=== PATIENT | female | born 1955 | race Caucasian/White ===

== ENCOUNTER 2017-10-18 11:27 | Emergency (ER) | payer MEDICARE, OTHER ==
[~2017-10-18] VITALS: Ht 167.6 cm; Wt 61.2 kg
[~2017-10-18 11:27] MED LIST: ALPR.5 PO; ARIP10 PO; ATOR40TA PO; BRINTELLIX20 MG PO; CYAN1000I IM; ERGO50000 PO; ESOM20 PO; LEVSOD100 PO; METO50ER; MODA200 PO; NUVIGIL250 MG PO; PRED5 PO; THIA100I ID
[2017-10-18 12:21] LABS: BASOPHILS ABSOLUTE AUTO 0.02 K/mm3 (0.00-0.23); BASOPHILS PERCENT AUTO 0 % (0-2); EOSINOPHILS PERCENT AUTO 0 % (0-6); Hematocrit 43.4 % (33.0-51.0); Hemoglobin 14.6 g/dL (11.5-16.0); IMMATURE GRAN ABSOLUTE AUTO 0.03 K/mm3 (0.00-0.10); IMMATURE GRAN PERCENT AUTO 0 % (0-1); LYMPHOCYTES ABSOLUTE AUTO 1.93 K/mm3 (0.84-5.20); LYMPHOCYTES PERCENT AUTO 19 % (21-46); MONOCYTES ABSOLUTE AUTO 0.78 K/mm3 (0.16-1.47); MONOCYTES PERCENT AUTO 8 % (4-13); Mean Corpuscular HGB 32.1 pg (26.0-34.0); Mean Corpuscular HGB Conc 33.6 g/dL (31.5-36.5); Mean Corpuscular Volume 95 fL (80-100); Mean Platelet Volume 9.4 fL (9.1-12.4); NEUTROPHILS ABSOLUTE AUTO 7.18 K/mm3 (1.96-9.15); NEUTROPHILS PERCENT AUTO 72 % (41-73); Platelet Count 342 K/mm3 (150-400); RDW Coefficient Variation 12.5 % (11.7-14.2); RDW Standard Deviation 43.5 fL (35.1-46.3); Red Blood Cell Count 4.55 M/mm3 (3.80-5.20); White Blood Cell Count 9.94 K/mm3 (4.00-11.30)
[2017-10-18 12:40] LABS: Alanine Aminotransfer (ALT/SGP 9 U/L (12-78); Albumin, Blood 3.8 g/dL (3.4-5.0); Albumin/Globulin Ratio 1.1 (0.8-1.8); Alk Phos 62 U/L (50-136); Anion Gap 9 mmol/L (6-16); Aspartate Aminotrans (AST/SGOT 11 U/L (12-37); Bilirubin, Total 0.9 mg/dL (0.1-1.0); Blood Urea Nitrogen 7 mg/dL (8-24); Bun/Creatinine Ratio 9.4 (12.0-20.0); CO2, Blood 26 mmol/L (21-32); Calcium, Blood 9.1 mg/dL (8.5-10.1); Chloride, Blood 103 mmol/L (98-108); Creatinine, Blood 0.75 mg/dL (0.40-1.00); Globulin, Blood 3.6 g/dL (2.2-4.0); Glomerular Filtration Rate >60 (60-); Glucose, Blood 105 mg/dL (70-99); Potassium, Blood 3.3 mmol/L (3.5-5.5); Sodium, Blood 138 mmol/L (136-145); Total Protein, Blood 7.4 g/dL (6.4-8.2); Troponin I <0.015 ng/mL (0.000-0.040)
[2017-10-18] MEDS ORDERED: Citalopram HBr40 MG PO (16:13)
[2017-10-18] MEDS ORDERED: Desyrel50 MG PO (16:13)
[2017-10-18] MEDS ORDERED: Ativan1 MG PO (16:13)
== END 2017-10-18 17:08 | disposition home or self-care (01) ==
LOC: ER 11:27
PROVIDERS: Emergency Medicine
DX: F41.9 Anxiety disorder, unspecified (principal); F32.9 Major depressive disorder, single episode, unspecified; F43.9 Reaction to severe stress, unspecified; R06.4 Hyperventilation; E03.9 Hypothyroidism, unspecified; Z90.710 Acquired absence of both cervix and uterus; Z95.0 Presence of cardiac pacemaker
CPT/HCPCS: 36415; 71046; 80053; 84484; 85025; 93005; 93010; 96374; 99283; J2060

== ENCOUNTER 2019-02-06 06:53 | Day surgery (SDC) | payer OTHER ==
[~2019-02-06] VITALS: Ht 167.6 cm; Wt 62.0 kg
[~2019-02-06 06:53] MED LIST changes: +Ativan1 MG PO; +Citalopram HBr40 MG PO; +Desyrel50 MG PO; -METO50ER; +METO50ER PO; +Nitroglycerin1 EAC3 TD; +OLAN5 PO; +TIROSINT88 MCG PO; +TRAZ50 PO
[2019-02-06] MEDS ORDERED: LO-DOSE ASPIRIN81 MG PO (07:29)
--- NOTE | 2019-02-06 10:00 | NUR ---
DR BRANDT TO BEDSIDE, DISCUSSING PLAN OF CARE. NADN. VSS. R RADIAL REMAINS STABLE. SISTER, SAMSON AT BEDSIDE.
--- NOTE | 2019-02-06 10:07 | NUR ---
SUMMARY: PT HAS HAD UNCOMPLICATED POST PROCEDURE COURSE TO THIS POINT. EATING, DRINKING WITHOUT DIFFICULTY. AWAKE, ALERT, CONVERSING WITH FAMILY AT BEDSIDE. TR BAND IN PLACE TO RIGHT WRIST. NO BLEEDING OR SWELLING NOTED. CMS HAS REMAINED IN TACT ENTIRE TIME. CAP REFILL BRISK. CONTINUE TO MONITOR.
--- NOTE | 2019-02-06 10:36 | NUR ---
PT AND FAMILY VERBALIZES UNDERSTANDING WRITTEN AND VERBAL ORDERS. PT R RADIAL TR BAND REMAINS CLEAR. VSS. NADN. CALL LIGHT WITHIN REACH.
--- NOTE | 2019-02-06 11:14 | NUR ---
PT AMBULATES TO RESTROOM AND BACK WITHOUT DIFF. VSS. NADN.
--- NOTE | 2019-02-06 11:16 | NUR ---
PT TR BAND REMOVED. DOT DRESSING IN PLACE WITH SPLINT & SLING. NO BLEEDING OR HEMATOMA NOTED. VSS. PT ESCORTED BY WC TO DISCHARGE SCHILLING.
--- NOTE | 2019-02-06 11:24 | NUR ---
IV D/C TIP PRIOR TO DISCHARGE BY THIS RN.
== END 2019-02-06 11:20 | disposition home or self-care (01) ==
LOC: MHTC 06:53
DX: I25.10 Atherosclerotic heart disease of native coronary artery without angina pectoris (principal); I42.9 Cardiomyopathy, unspecified; E78.2 Mixed hyperlipidemia; E03.9 Hypothyroidism, unspecified; Z88.2 Allergy status to sulfonamides; Z88.0 Allergy status to penicillin; Z79.899 Other long term (current) drug therapy; Z79.82 Long term (current) use of aspirin
CPT/HCPCS: 93454; 99152; 99153; C1769; C1894; J1644; J2250; J3010; J7030; Q9967

== ENCOUNTER 2022-08-25 08:41 | Emergency (ER) | payer MEDICARE, OTHER ==
[~2022-08-25] VITALS: Ht 177.8 cm; Wt 55.8 kg
[~2022-08-25 08:41] MED LIST changes: +LO-DOSE ASPIRIN81 MG PO
[2022-08-25] MEDS ORDERED: Prednisone20 MG PO (11:42)
== END 2022-08-25 11:50 | disposition home or self-care (01) ==
LOC: ER 08:41
DX: R10.31 Right lower quadrant pain (principal); W19.XXXA Unspecified fall, initial encounter; Z88.2 Allergy status to sulfonamides; Z88.0 Allergy status to penicillin; Z79.899 Other long term (current) drug therapy; F17.200 Nicotine dependence, unspecified, uncomplicated
CPT/HCPCS: 73502

== ENCOUNTER 2025-06-18 16:20 | Emergency (ER) | payer MEDICARE, OTHER ==
[~2025-06-18] VITALS: Ht 162.6 cm; Wt 56.2 kg
[~2025-06-18 16:20] MED LIST changes: +Prednisone20 MG PO
[2025-06-18 16:55] LABS: BASOPHILS ABSOLUTE AUTO 0.03 K/mm3 (0.00-0.23); BASOPHILS PERCENT AUTO 0 % (0-2); EOSINOPHILS ABSOLUTE AUTO 0.04 K/mm3 (0.00-0.68); EOSINOPHILS PERCENT AUTO 1 % (0-6); Hematocrit 40.5 % (33.0-51.0); Hemoglobin 13.4 g/dL (11.5-16.0); IMMATURE GRAN ABSOLUTE AUTO 0.05 K/mm3 (0.00-0.10); IMMATURE GRAN PERCENT AUTO 1 % (0-1); LYMPHOCYTES ABSOLUTE AUTO 2.58 K/mm3 (0.84-5.20); LYMPHOCYTES PERCENT AUTO 30 % (21-46); MONOCYTES ABSOLUTE AUTO 0.76 K/mm3 (0.16-1.47); MONOCYTES PERCENT AUTO 9 % (4-13); Mean Corpuscular HGB Conc 33.1 g/dL (31.5-36.5); Mean Corpuscular Volume 100 fL (80-100); NEUTROPHILS ABSOLUTE AUTO 5.27 K/mm3 (1.96-9.15); NEUTROPHILS PERCENT AUTO 60 % (41-73); NRBC ABSOLUTE 0.00 K/mm3 (0.00-0.02); NRBC Auto 0.0 /100 WBC (0.0-0.2); Platelet Count 352 K/mm3 (150-400); RDW Coefficient Variation 12.9 % (11.7-14.2); RDW Standard Deviation 47.7 fL (35.1-46.3)
[2025-06-18 17:12] LABS: Alanine Aminotransfer (ALT/SGP 16.0 U/L (12-78); Albumin, Blood 3.6 g/dL (3.4-5.0); Albumin/Globulin Ratio 1.1 (0.8-1.8); Anion Gap 8.0 mmol/L (3-11); Aspartate Aminotrans (AST/SGOT 14.0 U/L (12-37); Bilirubin, Total 0.4 mg/dL (0.1-1.0); Blood Urea Nitrogen 11.0 mg/dL (8-24); CO2, Blood 29.0 mmol/L (21-32); Calcium, Blood 9.0 mg/dL (8.5-10.1); Chloride, Blood 105.0 mmol/L (98-108); Creatinine, Blood 0.84 mg/dL (0.40-1.00); Globulin, Blood 3.4 g/dL (2.2-4.0); Glucose, Blood 89.0 mg/dL (70-99); Potassium, Blood 4.0 mmol/L (3.5-5.5); Sodium, Blood 138.0 mmol/L (136-145); Total Protein, Blood 7.0 g/dL (6.4-8.2)
[2025-06-18 18:09] VITALS: BP 142/94
== END 2025-06-18 19:55 | disposition home or self-care (01) ==
LOC: ER 16:20
PROVIDERS: Emergency Medicine
DX: R06.02 Shortness of breath (principal); F17.200 Nicotine dependence, unspecified, uncomplicated; Z79.82 Long term (current) use of aspirin; Z79.899 Other long term (current) drug therapy; Z88.2 Allergy status to sulfonamides; Z88.0 Allergy status to penicillin
CPT/HCPCS: 71046; 80053; 83690; 84484; 85025; 85379; 93005; 93010; 99285-25